=== PATIENT | female | born 1990 | race Caucasian/White ===

== ENCOUNTER 2017-09-29 07:07 | Day surgery (SDC) | payer BC ==
[~2017-09-29 07:07] MED LIST: Lactated Ringers 1,000 ML IV SCH; Lidocaine 1%/Sod Bicarbonate in NS 8.4% 1 ML Syringe IDERM PRN; Sodium Chloride 0.9% 10 ML Syringe FLUSH PRN
[2017-09-29] MEDS ORDERED: Lidocaine 1% with EPINEPHrine 1:100,000 20 ML MDV ONE (07:20)
[2017-09-29] MEDS ORDERED: Sodium Chloride 0.9% 50 ML SDV ONE (07:20)
--- NOTE | 2017-09-29 07:45 | PCM.PREANE ---
Preanesthetic Assessment - Anesthesia/Transfusion/Family Hx Anesthesia History: No Prior Anesthesia Family History of Anesthesia Reaction: No Transfusion History: No Prior Transfusion(s) - Review of Systems General: No Symptoms Pulmonary: No Symptoms Cardiovascular: No Symptoms Gastrointestinal: No Symptoms Neurological: No Symptoms Other: Reports: None - Physical Assessment NPO Status Date: 09/28/17 NPO Status Time: 00:00 Pulse: 91 O2 Sat by Pulse Oximetry: 97 Respiratory Rate: 16 Blood Pressure: 120/75 Temperature: 37.2 C Height: 1.63 m Weight: 91.3 kg ASA Class: 2 Mental Status: Alert & Oriented x3 Airway Class: Mallampati = 1 Dentition: Reports: Normal Dentition Thyro-Mental Finger Breadths: 3 Mouth Opening Finger Breadths: 3 ROM/Head Extension: Full Lungs: Clear to Auscultation, Normal Respiratory Effort Cardiovascular: Regular Rate, Regular Rhythm, No Murmurs - Lab Values: Laboratory Last Values WBC 11.23 K/mm3 (3.98-10.04) H 09/29/17 07:33 RBC 5.27 M/mm3 (3.98-5.22) H 09/29/17 07:33 Hgb 14.4 gm/L (11.2-15.7) 09/29/17 07:33 Hct 42.2 % (34.1-44.9) 09/29/17 07:33 MCV 80.1 fl (79.4-94.8) 09/29/17 07:33 MCH 27.3 pg (25.6-32.2) 09/29/17 07:33 MCHC 34.1 g/dl (32.2-35.5) 09/29/17 07:33 RDW Std Deviation 37.7 fL (36.4-46.3) 09/29/17 07:33 Plt Count 250 K/mm3 (182-369) 09/29/17 07:33 MPV 9.4 fl (9.4-12.3) 09/29/17 07:33 Neut % (Auto) 73.0 % (34.0-71.1) H 09/29/17 07:33 Lymph % (Auto) 18.1 % (19.3-51.7) L 09/29/17 07:33 [place] % (Auto) 7.6 % (4.7-12.5) 09/29/17 07:33 Eos % (Auto) 0.9 (0.7-5.8) 09/29/17 07:33 Baso % (Auto) 0.2 % (0.1-1.2) 09/29/17 07:33 Neut # (Auto) 8.21 K/mm3 (1.56-6.13) H 09/29/17 07:33 Lymph # (Auto) 2.03 K/mm3 (1.18-3.74) 09/29/17 07:33 [place] # (Auto) 0.85 K/mm3 (0.24-0.36) H 09/29/17 07:33 Eos # (Auto) 0.10 K/mm3 (0.04-0.36) 09/29/17 07:33 Baso # (Auto) 0.02 K/mm3 (0.01-0.08) 09/29/17 07:33 Urine HCG, Qual Negative (NEGATIVE) 09/29/17 07:15 - Allergies Allergies/Adverse Reactions: Allergies Allergy/AdvReac Type Severity Reaction Status Date / Time No Known Allergies Allergy Verified 09/28/17 12:40 - Blood Blood Available: No Product(s) Available: None - Anesthesia Plan Pre-Op Medication Ordered: None - Acknowledgements Anesthesia Type Planned: General Anesthesia Pt an Appropriate Candidate for the Planned Anesthesia: Yes Alternatives and Risks of Anesthesia Discussed w Pt/Guardian: Yes Pt/Guardian Understands and Agrees with Anesthesia Plan: Yes PreAnesthesia Questionnaire Cardiovascular History: Reports: None Respiratory History: Reports: None Gastrointestinal History: Reports: None Genitourinary History: Reports: Other (See Below) Other Genitourinary History: genital warts PRECISION DYER History: Reports: , Other (See Below) Other OB/BYN History: irregular menses Musculoskeletal History: Reports: None Neurological History: Reports: None Psychiatric History: Reports: None Endocrine/Metabolic History: Reports: None Hematologic History: Reports: None Immunologic History: Reports: None Oncologic (Cancer) History: Reports: None Dermatologic History: Reports: Other (See Below) Other Dermatologic History: pigmented skin lesion, tinea - Past Surgical History Head Surgeries/Procedures: Reports: None HEENT Surgical History: Reports: Myringotomy w Tube(s) Cardiovascular Surgical History: Reports: None Respiratory Surgical History: Reports: None GI Surgical History: Reports: None Female Surgical History: Reports: Section Male Surgical History: Reports: None Endocrine Surgical History: Reports: None Neurological Surgical History: Reports: None Musculoskeletal Surgical History: Reports: None Oncologic Surgical History: Reports: None Dermatological Surgical History: Reports: None - SUBSTANCE USE Smoking Status *Q: Former Smoker Tobacco Use Within Last Twelve Months: Cigarettes Second Hand Smoke Exposure: No Days Per Week of Alcohol Use: 1 Number of Drinks Per Day: 0 Total Drinks Per Week: 0 Recreational Drug Use History: No - HOME MEDS Home Medications: Home Meds Ascorbate Calcium [Vitamin C] 500 mg PO DAILY 09/28/17 [History] Biotin 1 mg PO DAILY 09/28/17 [History] Ketoconazole [Nizoral 2% Crm] 1 applic TOP ASDIRECTED PRN 09/28/17 [History] Levonorgestrel-Ethin Estradiol [Lessina-28 Tablet] 1 tab PO DAILY 09/28/17 [ History] Multivitamin [Multi-Day Vitamins] 1 tab PO DAILY 09/28/17 [History] - CURRENT (IN HOUSE) MEDS Current Meds: Current Medications Lactated Ringer's (Ringers, Lactated) 1,000 mls @ 125 mls/hr IV ASDIRECTED NO Stop: 09/29/17 23:00 Lidocaine/Sodium Bicarbonate (Buffered Lidocaine 1% In Ns 8.4%) 0.25 ml IDERM ONETIME PRN PRN Reason: Prior to IV Start Stop: 09/29/17 18:00 Sodium Chloride (Saline Flush) 10 ml FLUSH ASDIRECTED PRN PRN Reason: Keep Vein Open Stop: 09/29/17 18:00 Discontinued Medications Lidocaine/Epinephrine (Xylocaine 1% With Epinephrine 1:100,000) Confirm Administered Dose 20 ml .ROUTE .STK-MED ONE Stop: 09/29/17 07:21 Sodium Chloride (Normal Saline) Confirm Administered Dose 50 ml .ROUTE .STK-MED ONE Stop: 09/29/17 07:21
[2017-09-29] MEDS ORDERED: Midazolam 1 MG/ML 2 ML SDV ONE (08:12)
[2017-09-29] MEDS ORDERED: Propofol 200 MG/20 ML SDV ONE ×2 (08:12→08:28)
[2017-09-29] MEDS ORDERED: Ondansetron 4 MG/2 ML SDV ONE (08:12)
[2017-09-29] MEDS ORDERED: fentaNYL 100 MCG/2 ML SDV ONE ×2 (08:12→08:25)
[2017-09-29] MEDS ORDERED: ceFAZolin 1 GM Vial ONE (08:17)
[2017-09-29] MEDS ORDERED: Ondansetron 4 MG/2 ML SDV IVPUSH PRN (08:26)
[2017-09-29] MEDS ORDERED: Acetaminophen/oxyCODONE 325-5 MG Tab PO PRN (08:26)
--- NOTE | 2017-09-29 08:33 | PCM.OPNOTE ---
- General Post-Op/Procedure Note Date of Surgery/Procedure: 09/29/17 Operative Procedure(s): Cervical cone biopsy, curettage above cone site Findings: Cervix appeared relatively normal exceptional 1 white epithelium area noted at 6 o'clock position. Pre Op Diagnosis: [id number] Post-Op Diagnosis: Same Anesthesia Technique: MAC Other Anesthesia Type: Lidocaine quarter percent with [id number] mL total Primary Surgeon: Manuel Hernandez Secondary Surgeon: Vaughn Jean Anesthesia Provider: Jalil Herron Air Cargo Specialist Supervisor: Oleksandr Bolton Reason Air Cargo Specialist Supervisor Was Necessary: Retraction, patient safety, quality of care Role of Air Cargo Specialist Supervisor: Retraction Fluid Replacement, Intraop: 1,000 EBL in mLs: 5 Complications: None Condition: Good Free Text/Narrative:: Surgery duration: 12 minutes Procedure: The patient is taken to the operating room and placed in supine position on the operating table. She was administered Ancef 2 g IV preop for infection prophylaxis and had sequential compression stockings in place for DVT prophylaxis. General LMA anesthesia was administered. After anesthesia patient was placed in a dorsal lithotomy position and prepped externally for this procedure. Internal prep was done with Lugol solution. A weighted speculum was placed in the vagina. The cervix was visualized and a stay suture was placed at the 3:00 and 9 o'clock position using #1 Vicryl suture. The Lugol solution was applied and the ectocervix appeared entirely normal. The cervix was infiltrated with lidocaine quarter percent with epinephrine-20 mL total. Cold knife cone biopsy was then performed. The specimen was tagged at 12 o'clock position with a piece of suture. Endocervical curettage was done above the cone site and sent as specimen #2. The base the cone was then cauterized. Hemostasis was confirmed at the end of procedure. The stay suture tails were cut and the speculum was removed. Sponge instrument needle counts are correct at the end of the procedure. She was returned to supine position and awakened from general anesthesia. She tolerated the procedure well left the operating room in good condition.
--- NOTE | 2017-09-29 08:35 | PCM48HPAN ---
Post Anesthesia Note - EVALUATION WITHIN 48HRS OF ANESTHETIC Vital Signs in Normal Range: Yes Patient Participated in Evaluation: Yes Respiratory Function Stable: Yes Airway Patent: Yes Cardiovascular Function Stable: Yes Hydration Status Stable: Yes Pain Control Satisfactory: Yes Nausea and Vomiting Control Satisfactory: Yes Mental Status Recovered: Yes Pulse Rate: 96 SaO2: 94 Resp Rate: 12 Temperature: 36.7 C Blood Pressure: 111/74 - COMMENTS/OBSERVATIONS Free Text/Narrative:: no anesthesia complications noted
[2017-09-29] MEDS ORDERED: Ketorolac 30 MG/ML SDV ONE (08:42)
[2017-09-29] MEDS ORDERED: Ibuprofen 600 MG Tab PO ONE (08:58)
== END 2017-09-29 09:20 | disposition home or self-care (01) ==
LOC: JD.SDS 07:07
PROVIDERS: ATTEND Obstetrics & Gynecology
DX: D06.0 Carcinoma in situ of endocervix (principal); Z79.899 Other long term (current) drug therapy; Z87.891 Personal history of nicotine dependence
CPT/HCPCS: 36415; 57522; 81025; 85025; J0690; J1885; J2250; J2405; J3010; J7120; J2704